=== PATIENT | female | born 1960 | race African-American/Black ===

== ENCOUNTER 2019-03-01 11:54 | Outpatient (CLI) | payer OTHER ==
--- NOTE | 2019-03-01 14:42 | ULT ---
CAROTID DUPLEX ULTRASOUND: DATE: 03/01/19 INDICATION: Carotid screening evaluation. COMPARISON: None. FINDINGS: Peak systolic velocity in the right CCA was 142 cm/second and in the left was 139 cm/second. Peak systolic velocity in the right ICA was 93.9 cm/second and in the left was 98.1 cm/second. The right ICA/CCA ratio was 0.67 and the left was 0.71. Antegrade flow was seen within both vertebral arteries. IMPRESSION: No hemodynamically significant stenosis demonstrated. POS: C
== END 2019-03-01 11:55 | disposition home or self-care (01) ==
LOC: BICULT 11:54
PROVIDERS: ATTEND Nurse Practitioner Family
DX: Z13.6 Encounter for screening for cardiovascular disorders (principal)
CPT/HCPCS: 93880

== ENCOUNTER 2021-03-24 07:49 | Emergency (ER) | payer SELFPAY ==
[2021-03-24 10:28] LABS: SARS-CoV-2 NAA Rapid Test DETECTED (NotDetected)
== END 2021-03-24 08:18 | disposition home or self-care (01) ==
LOC: ERS 07:49
DX: U07.1 COVID-19 (principal)
CPT/HCPCS: 99283; U0002